=== PATIENT | male | born 1965 | race Caucasian/White ===

== ENCOUNTER 2016-10-19 11:34 | Emergency (ER) | payer OTHER ==
[~2016-10-19] VITALS: Ht 165.1 cm; Wt 80.0 kg
[~2016-10-19 11:34] MED LIST: CYCL-319 PO; HYDR-3498 PO; HYDR-762 PO; NAPR-260 PO; PANT40TA3 PO; RANI150T5 PO; ZOF8 PO
[2016-10-19 11:57] VITALS: Ht 165.1 cm; Wt 80.0 kg
[2016-10-19] MEDS ORDERED: ONDANSETRON (ODT) 4 MG TAB ODT STA (13:20)
[2016-10-19] MEDS ORDERED: IBUPROFEN 600 MG TAB PO ONE (13:30)
[2016-10-19] MEDS ORDERED: ONDA8TAB14 PO (14:19)
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
== END 2016-10-19 15:07 | disposition home or self-care (01) ==
LOC: FTE 11:34
DX: H92.01 Otalgia, right ear (principal); R11.2 Nausea with vomiting, unspecified
CPT/HCPCS: 99283

== ENCOUNTER 2017-01-19 12:34 | Emergency (ER) | payer OTHER ==
[~2017-01-19] VITALS: Ht 154.9 cm; Wt 78.5 kg
[~2017-01-19 12:34] MED LIST changes: +ONDA8TAB14 PO
[2017-01-19 12:46] VITALS: Ht 154.9 cm; Wt 78.5 kg
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
[2017-01-19 15:13] VITALS: BP 138/64; PULSE 71; RESP 18; TEMP 98
== END 2017-01-19 15:14 | disposition home or self-care (01) ==
LOC: FTE 12:34
DX: F41.9 Anxiety disorder, unspecified (principal); R11.0 Nausea; R00.1 Bradycardia, unspecified
CPT/HCPCS: 82962; 93005

== ENCOUNTER 2017-09-16 12:45 | Emergency (ER) | END 2017-09-16 14:23 | disposition left against medical advice (07) ==

== ENCOUNTER 2019-02-26 05:16 | Emergency (ER) | payer OTHER ==
[~2019-02-26] VITALS: Ht 165.1 cm; Wt 76.1 kg
[~2019-02-26 05:16] MED LIST changes: -CYCL-319 PO; +CYCL10TA7 PO; -NAPR-260 PO; +NAPR-985 PO
[2019-02-26 05:17] VITALS: BP 134/74; PULSE 54; RESP 18; Ht 165.1 cm; Wt 76.1 kg
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
== END 2019-02-26 06:45 | disposition home or self-care (01) ==
LOC: FTE 05:16
DX: R04.0 Epistaxis (principal)
CPT/HCPCS: 99282